=== PATIENT | male | born 1985 | race Caucasian/White ===

== ENCOUNTER 2021-04-12 17:51 | Emergency (ER) | payer SELFPAY ==
[~2021-04-12] VITALS: Ht 170.2 cm; Wt 90.0 kg
[2021-04-12] MEDS ORDERED: LORAZEPAM 2MG/ML CPJ IV ONE (19:00)
[2021-04-12] MEDS ORDERED: SODIUM CHLORIDE 0.9% 1,000 ML IV ONE (19:00)
[2021-04-12 20:11] LABS: BASOPHILS % 0.4 % (0.0-2.0); EOSINOPHILS % 0.1 % (0.0-5.0); HEMATOCRIT. 46.2 % (42.0-52.0); HEMOGLOBIN. 15.7 g/dL (14.0-18.0); LYMPHOCYTES % 11.5 % (20.0-50.0); MEAN CORPUSCULAR HEMOGLOBIN 30.5 pg (28.0-32.0); MEAN CORPUSCULAR VOLUME 89.8 fL (80.0-94.0); MEAN PLATELET VOLUME 8.8 fl (7.4-10.4); MONOCYTES % 5.7 % (2.0-8.0); NEUTROPHILS % 82.3 % (40.0-76.0); PLATELET 236 x1000/uL (130-400); RED BLOOD CELL COUNT 5.15 mill/uL (4.7-6.1); RED CELL DISTRIBUTION WIDTH 13.9 % (11.6-14.6)
[2021-04-12 20:16] LABS: CHLORIDE 105 mEq/L (98-107)
[2021-04-12 22:30] VITALS: BP 147/95
== END 2021-04-12 22:39 | disposition home or self-care (01) ==
LOC: ER 17:51
DX: T40.7X1A Poisoning by cannabis (derivatives), accidental (unintentional), initial encounter (principal); F12.188 Cannabis abuse with other cannabis-induced disorder; R00.2 Palpitations; F12.180 Cannabis abuse with cannabis-induced anxiety disorder; R03.0 Elevated blood-pressure reading, without diagnosis of hypertension; Y92.89 Other specified places as the place of occurrence of the external cause
CPT/HCPCS: 36415; 71045; 80053; 84443; 85025; 93005; 96361; 96374; 99285; J2060; J7030